=== PATIENT | female | born 1965 | race Caucasian/White ===

== ENCOUNTER 2016-10-26 06:24 | Emergency (ER) | payer OTHER ==
[~2016-10-26] VITALS: Ht 177.8 cm; Wt 150.0 kg
[~2016-10-26 06:24] MED LIST: ADV10050 IH; ASPI-676 PO; [UNRECOGNIZED DRUG - CODE] PO
[2016-10-26 06:35] VITALS: Ht 177.8 cm; Wt 150.0 kg
--- NOTE | 2016-10-26 07:13 | ERD ---
ER Documentation Chief Complaint Date/Time DATE: 10/26/16 TIME: 07:09 Chief Complaint RT LEG PAIN X2 WEEKS, WORSE SINCE YESTERDAY. HPI 51-year-old female presented emergency room for right leg/knee pain for about 2 weeks. Stated it is worse yesterday. She also stated that she had a cracking sound to her right knee yesterday. Stated that the pain is relieved whenever he stands. Denies headache, loss of consciousness, dizziness, blurry vision, changes in vision, photophobia, facial pain, ear pain, throat pain, difficulty swallowing, neck pain, shoulder pain, chest pain, cough, hemoptysis, abdominal pain, back pain, loss of appetite, nausea, vomiting, hematochezia, diarrhea, constipation, urinary symptoms, , the possibility of being , bladder and bowel incontinences, recent travel, recent exposure to illness, recent antibiotic use in the last 3 months, fever, chills. Allergy: No known drug allergies. PMH: Hypertension. High cholesterol. Denies. Family medical history: Medications: Losartan. Surgery: Denies. 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 Denies smoking, use of alcohol, use of illegal drugs. ROS All systems reviewed and are negative except as per history of present illness. Medications Home Meds Reported Medications Salmeterol Xinaf/Fluticasone* (Advair 100/50 Diskus*) 1 Inh Inha, 1 INH IH QHS 07/25/12 Aspirin (Dee Child) 81 Mg Chew, 81 MG PO DAILY 07/25/12 Aliskiren Hemifumarate* (Tekturna*) 150 Mg Tablet, 150 MG PO QHS 07/25/12 Allergies Allergies: Coded Allergies: No Known Allergy (Unverified , 07/25/12) PMhx/Soc History of Surgery: Yes () Anesthesia Reaction: No Hx Neurological Disorder: No Hx Respiratory Disorders: Yes Hx Cardiac Disorders: No Hx Psychiatric Problems: No Hx Miscellaneous Medical Probl: Yes (HTN) Hx Alcohol Use: No Hx Substance Use: No Hx Tobacco Use: No Physical Exam Vitals Vital Signs Date Time Temp Pulse Resp B/P Pulse Ox O2 Delivery O2 Flow Rate FiO2 10/26/16 06:35 97.7 79 20 193/99 95 Physical Exam CONSTITUTIONAL: Well-appearing; well-nourished; in no apparent distress. HEAD: Normocephalic; atraumatic. EYES: Conjunctiva clear, sclera non-icteric, EOM intact. PERRL Ears: Hearing intact. EACs clear, TMs non-bulging, non-inflamed, translucent & mobile, ossicles normal appearance, No obstructions, no erythema, no discharges Nose: No obstructions. No polyps. No external lesions. Mucosa non-inflamed. No external lesions, septum and turbinates normal. No rhinorrhea. No discharges. Frontal sinus is non-tender to palpation. Maxillary sinus is non-tender to palpation. MOUTH: Moist mucous membranes, no lesion, no obstructions, no vesicles, no thrush, patent airway Throat: Uvula in midline. Right tonsil is +1 with no erythema, no exudate. Left tonsil is +1 with no erythema, no exudate. Tolerating secretions well. Good gag reflex. Patent airway. Neck: Supple, without lesions, bruits, or adenopathy. No mass. Thyroid non- enlarged and non-tender to palpation. CHEST: Symmetrical chest. Respirations even and not labored. No retractions noted. CARDIOVASCULAR: Normal S1, S2. RRR. No murmurs, gallops. RESPIRATORY: Normal chest excursion with respiration; breath sounds clear and equal bilaterally; no wheezes, rhonchi, or rales. Breathing even and unlabored. Speaking in clear, full, and complete sentences w/ ease. ABDOMEN: Normal bowel sounds normal. Soft, round, non-distended, non-guarding, no tenderness, no rebound, no organomegaly, no masses, no pulsating abdominal mass. No hernia. No peritoneal signs. : No CVA tenderness. BACK: Symmetrical shoulder. Spine is midline without deformity, tenderness. No evidence of trauma or deformity. PELVIS: Stable pelvis. No evidence of trauma or deformity. MUSCULOSKELETAL: Normal gait and station. No misalignment, asymmetry, crepitation, defects, tenderness, masses, effusions, decreased range of motion, instability, atrophy or abnormal strength or tone in the head, neck, spine, ribs , pelvis or extremities except tenderness to medial and lateral knee. Positives right straight leg test. Negative on left straight leg test. No calf tenderness. NEUROVASCULAR: Distal pulses are present. Pedal pulse are present, equal, and normal. Capillary refills are < 2 seconds. NEUROLOGIC: Alert and oriented x4. Speaks full and clear sentences. Cranial Nerves II-XII normal. Sensation to pain, touch, and proprioception normal. Grossly unremarkable. No neurologic deficits. Romberg test is negative. PSYCHOLOGICAL: The patients mood and manner are appropriate. No hallucinations , delusions. Not SI. Not HI. Has the capacity to decide for self SKIN: Normal for age and ethnicity; warm; dry; good turgor; no apparent lesions or exudates. No rashes, hives, discoloration. Intact. Results 24 hrs Current Medications Medications (Trade) Dose Ordered Sig/Tex Route PRN Reason Start Time Stop Time Status Last Admin Dose Admin Ibuprofen (Motrin) 800 mg ONCE ONCE PO 10/26/16 07:30 10/26/16 07:31 DC 10/26/16 07:22 Procedures/MDM Examination: Please see physical examination Disease process, medical treatment was explained to the patient and family member. They verbalized understanding and agreed with the diagnostic tests, medical treatment, and follow-up care. Radiology: Right knee x-ray Impression: Venous Doppler ultrasound bilateral. Findings: There is normal compressibility and flow within the bilateral common femoral, superficial femoral, posterior tibial and popliteal veins. Impression: No sonographic evidence for deep vein thrombosis. Treatment: Toradol. Right knee Jr wrap. Re-evaluation: Denies leg pain, knee pain, coughing. No calf tenderness.No neurovascular deficits prior to and after the application of Jr wrap. Consultation: Differential diagnosis: DVT versus fracture versus dislocation versus contusion versus sprain Medical decision makin-year-old female presented emergency room for right leg/knee pain for about 2 weeks. Stated it is worse yesterday. She also stated that she had a cracking sound to her right knee yesterday. Stated that the pain is relieved whenever he stands. Patient's complaint, patient's history about her complaint, my physical findings, my diagnostic test results, my reevaluation are consistent with my final diagnosis of right knee pain. Medications prescribed are the following: Tramadol. Tylenol. Patient and family member are made aware of the side effects and adverse reactions of the medications prescribed. Instructed on when to seek emergent and medical attention in case allergic/anaphylactic reactions or severe side effects and or adverse reactions to medications. Patient and family member verbalized understanding. Patient instructed Instructed to follow-up with his PCP in 24-48 hours. Instructed to Call 911 for chest pain, shortness of breath. Advised to come back here in ED as soon as possible for severity of symptoms which includes but not limited to: any new symptoms; shortness of breath/difficulty of breathing; cardiovascular changes; severe gastrointestinal symptoms; signs and symptoms of bleeding and or infection; signs of compartment syndrome/neurovascular changes; neurological changes/deficits. Patient and family member verbalized understanding. Upon discharge, patient is alert and oriented x 4, speaks full and clear sentences, denies pain, has no neurological deficits, has no neurovascular deficits, difficulty of breathing. Breathing even and unlabored. Lung sounds are clear to auscultation. Not in distress. Appears comfortable. Ambulatory with steady gait. Appears satisfied with care provided here in ED. Departure Diagnosis: Primary Impression: Pain of right leg Condition: Good Additional Instructions: Patient instructed Instructed to follow-up with his PCP in 24-48 hours. Instructed to Call 911 for chest pain, shortness of breath. Advised to come back here in ED as soon as possible for severity of symptoms which includes but not limited to: any new symptoms; shortness of breath/difficulty of breathing; cardiovascular changes; severe gastrointestinal symptoms; signs and symptoms of bleeding and or infection; signs of compartment syndrome/neurovascular changes; neurological changes/deficits. Patient and family member verbalized understanding. HILLARY MACKEY Oct 26, 2016 07:13
[2016-10-26] MEDS ORDERED: IBUPROFEN 800 MG TAB PO ONE (07:30)
--- NOTE | 2016-10-26 08:15 | RADRPT ---
AMENDMENT: 10/26/2016 8:57:43 AM Og Peterson M.d Addendum: Typographical error exists throughout the report. Under headings of procedure, technique , findings and impression it should read right knee. PROCEDURE: Left knee x-ray CLINICAL INDICATION: Pain TECHNIQUE: AP, lateral and oblique views of the left knee were obtained. COMPARISON: None FINDINGS: There is mild degenerative joint disease of the left knee. There is no evidence of acute fracture o r dislocation. The bony mineralization is normal. There are no focal bony blastic or lytic lesions . No evidence of a left knee joint effusion. The soft tissues are unremarkable. IMPRESSION: Mild degenerate joint disease of the left knee without evidence acute fracture dislocation or joint effusion. RPTAT:AAJJ Physician Hern[place] Date Time Electronically viewed and signed by Cordell Peterson Physician on 10/26/2016 08:59 /
--- NOTE | 2016-10-26 08:17 | RADRPT ---
PROCEDURE: US Lower extremity Venous. CLINICAL INDICATION: Bilateral lower extremity swelling , pain TECHNIQUE: Multiple sonographic images of the bilateral lower extremity deep venous system was obt ained utilizing grayscale, color-flow, compressive sonography and doppler imaging with augmentation. The images were reviewed on a PACS workstation. COMPARISON: 10/11/2014 FINDINGS: There is normal compressibility and flow within the bilateral common femoral, superficial femoral , posterior tibial and popliteal veins. RPTAT: AA IMPRESSION: No sonographic evidence for deep venous thrombosis. .Zeus Patel MD, MD Date Time Electronically viewed and signed by .Zeus Patel MD, on 10/26/2016 08:17 .S/
[2016-10-26] MEDS ORDERED: ACET500C5 PO (09:05)
[2016-10-26] MEDS ORDERED: TRAM50TA2 PO (09:06)
[2016-10-26 09:52] VITALS: BP 175/94
== END 2016-10-26 10:02 | disposition home or self-care (01) ==
LOC: FTE 06:24
DX: M79.604 Pain in right leg (principal); I10 Essential (primary) hypertension
CPT/HCPCS: 73562; 93923